=== PATIENT | female | born 1955 | race Caucasian/White ===

== ENCOUNTER 2017-02-11 20:37 | Emergency (ER) | payer OTHER ==
[~2017-02-11] VITALS: Ht 167.6 cm; Wt 84.6 kg
[~2017-02-11 20:37] MED LIST: AMOXICILLIN500 MG PO; AUGMENTIN875 MG PO; CALCIUM CARBON600 M1 PO; CALCIUM600 M1 PO; DIOVAN HCT 31 TABLE1 PO; ENDOCET 5-3251 EACH PO; Glucosamine/Chondroi PO; INDERAL40 MG PO; LO-DOSE ASPIRIN81 M1 PO; NEURONTIN600 MG PO; Neurontin PO; SKELAXIN800 MG PO; THERAGRAN1 TABLET PO; VICODIN 5-3001 EACH PO
[2017-02-11 20:39] VITALS: BP 170/90
== END 2017-02-11 22:45 | disposition home or self-care (01) ==
LOC: EXP 20:37 → EME 20:37 → EXP 22:45
DX: J02.9 Acute pharyngitis, unspecified (principal); R13.10 Dysphagia, unspecified; I10 Essential (primary) hypertension
CPT/HCPCS: 87651 90; 99281; 99283